=== PATIENT | male | born 2000 | race Caucasian/White ===

== ENCOUNTER 2018-05-15 15:28 | Emergency (ER) | payer SELFPAY ==
[~2018-05-15 15:28] MED LIST: AMOX-362 PO; CEP250 PO; CEP500 PO; DECONGESTANT; DIPH-740 PO; LOR10 PO; MAGN296S6 PO; MOM PO; NA P133E21 RC; TYLENOL; [UNRECOGNIZED DRUG - CODE] PO
--- NOTE | 2018-05-15 16:10 | ER Report ---
History and Physical Time Seen By MD: 15:43 Hx. of Stated Complaint: SMASHED LEFT INDEX FINGER IN HOUSE DOOR METAL ABOUT 30 MINUTES AGO TOOK 6 BABY ASA FOR THE PAIN HPI/ROS Source of History: The client Chief Concern: slammed finger in door History of Present Illnesses: 17-year-old male reports 45 minutes ago he slammed his finger in a metal door. Reports full movement and sensation of the finger. Denies associated symptoms. Aspirin 6 tablets of "low dose" aspirin has not relieved his pain. Constitutional. Denies recent illness, malaise, chills, fever. HEENT. Denies headache. No sinus congestion. Cardiovascular. Denies chest pain, palpitations, or diaphoresis. Respiratory. Denies cough, shortness of breath, or wheezing. Gastrointestinal System. Denies nausea, vomiting, constipation, diarrhea, hematochezia, or black stools. Genitourinary. Changes in urination. Musculoskeletal. Denies muscular pain, no joint pain. Allergies: Coded Allergies: No Known Drug Allergies (Verified , 05/15/18) Home Meds Discontinued Reported Medications Magnesium Citrate (MAGNESIUM CITRATE) 296 Ml Solution, 296 ML PO 12/13/16 Magnesium Hydroxide (MILK OF MAGNESIA) 400 Mg/5 Ml Oral.susp, 400 MG PO, BOTTLE 12/13/16 Discontinued Scripts Na Phos,M-B/Na Phos,Di-Ba (FLEET ENEMA) 133 Ml Enema, 133 ML RC ONCE, #1 BOTTLE 0 Refills Prov:JAY MARTINEZ [employer] 12/13/16 Magnesium Citrate (MAGNESIUM CITRATE) 296 Ml Solution, 296 ML PO ONCE, #1 BOT 0 Refills Prov:JAY MARTINEZ [employer] INSPECTOR 12/13/16 Past Medical/Surgical History Patient denies any pertinent medical or surgical history. Reviewed Nurses Notes: Yes Social History of wears glasses Hx Smoking: No Hx Substance Use Disorder: No Hx Alcohol Use: No Constitutional Vital Sign - Last 24 Hours 05/15/18 05/15/18 15:32 16:18 Temp 97.6 Pulse 87 85 Resp 12 14 B/P (MAP) 154/104 143/90 (107) Pulse Ox 98 98 O2 Delivery Room Air Room Air Physical Exam Constitutional: 17 -year-old well nourished, well-developed male, interactive, in no acute distress. Extremities warm to touch. Skin: [place] and well perfused BL. No evidence of generalized rash. Generally, warm and dry to touch. Head: Normocephalic and atraumatic. Eyes: Non-injected. No exudates. PERRLA. Corneas grossly intact. Extra ocular movements intact, peripheral vision grossly intact. ENMT: Ears- symmetrical auricles with smooth skin; auricles aligned with the outer canthus of eye. Nose - symmetric, straight, and uniform in color. No nasal flaring. Neck: Neck supple, erect, trachea midline, no masses. Cardiovascular: 2+ radial BL equal. Respiratory: Respiratory Excursion BL equal and symmetrical; no presence of lag; quiet, rhythmic and effortless. No retractions. Musculoskeletal: Active motion of all extremities. BL sensation of the fingers. Hematoma under the right index nail consistent with subungual hematoma. Neurologic: Alert. Language clear. Normal and coordinated gait. Sensation grossly intact. Differential diagnoses: subungual hematoma, fracture, Medical Decision Making ED Course/Re-evaluation ED Course 17-year-old male presents to the emergency department after "slamming" his right index finger into a door. History and physical examination obtained. With full range of motion, good sensation, and capillary refill, we mutually decided not to obtain an x-ray of the index digit. A cautery pen was used to open a hole in the fingernail to relieve the pressure created by the subungual hematoma. The patient reported relieve of pain and was sent home for home care. He has been encouraged to return to the emergency department if his condition worsens. He has further been encouraged to monitor for signs of infection and keep his hands clean and dry. Procedure Cautery pen used to create one hole in the nail. Blood evacuated without complication. Decision to Disposition Date: May 15, 2018 Decision to Disposition Time: 16:30 Depart Departure Latest Vital Signs Vital Signs Date Time Temp Pulse Resp B/P (MAP) Pulse Ox O2 Delivery O2 Flow Rate FiO2 05/15/18 16:18 85 14 143/90 (107) 98 Room Air 05/15/18 15:32 97.6 Impression: Primary Impression: Subungual hematoma Condition: Improved Disposition: HOME OR SELF-CARE Referrals: LEONCIO ABRAMS MD (PCP) Patient Instructions: Subungual Hematoma (ED) Additional Instructions: Keep the nail covered as it heals and grows out. Keep your hands clean and dry to avoid infection. Return to the emergency department if your condition worsens. Take ibuprofen or Tylenol for pain as needed. BHAKTI QUEEN May 15, 2018 16:10
[2018-05-15 16:18] VITALS: BP 143/90
== END 2018-05-15 16:20 | disposition home or self-care (01) ==
LOC: ER 15:36
DX: S60.121A Contusion of right index finger with damage to nail, initial encounter (principal)
CPT/HCPCS: 99282